=== PATIENT | male | born 1975 | race Caucasian/White ===

== ENCOUNTER 2024-04-12 11:38 | Emergency (ER) | payer BC, SELFPAY ==
[2024-04-12] MEDS ORDERED: Ibuprofen 800 MG TAB ONE (12:02)
== END 2024-04-12 12:34 | disposition home or self-care (01) ==
LOC: BURERS 11:38
DX: S53.401A Unspecified sprain of right elbow, initial encounter (principal); F17.210 Nicotine dependence, cigarettes, uncomplicated; F17.290 Nicotine dependence, other tobacco product, uncomplicated; X50.0XXA Overexertion from strenuous movement or load, initial encounter

== ENCOUNTER 2025-06-21 16:23 | Emergency (ER) | payer BC, MEDICARE ==
[2025-06-21] MEDS ORDERED: Bacitracin 1 PK ONE (17:03)
== END 2025-06-21 17:08 | disposition home or self-care (01) ==
LOC: BURERS 16:23
DX: L03.113 Cellulitis of right upper limb (principal); F17.210 Nicotine dependence, cigarettes, uncomplicated; F17.290 Nicotine dependence, other tobacco product, uncomplicated
CPT/HCPCS: 87070; 87077; 87205; 99283